=== PATIENT | male | born 1975 | race Caucasian/White ===

== ENCOUNTER 2017-12-13 19:55 | Emergency (ER) | payer BC ==
[2017-12-13 20:09] VITALS: BP 148/97; PULSE 63; RESP 16; TEMP 98.1; O2SAT 100
[2017-12-13] MEDS ORDERED: Sodium Chloride 0.9% 500 ML IV STA (20:19)
[2017-12-13 20:36] LABS: BASO # 0.1 K/uL (0.0-0.2); BASO % 0.9 % (0.0-2.0); EOS # 0.2 K/uL (0.0-0.7); EOS % 2.3 % (0.0-4.0); HEMOGLOBIN 16.4 g/dL (12.0-18.0); LYMPH # 2.3 K/uL (1.0-4.3); LYMPH % 30.5 % (20.0-40.0); MEAN CELL VOLUME 84.7 fl (80.0-94.0); MEAN CORPUSCULAR HEMOGLOBIN 28.6 pg (27.0-31.0); MEAN CORPUSCULAR HGB CONC 33.7 g/dL (33.0-37.0); MONO # 0.7 K/uL (0.0-0.8); MONO % 9.7 % (0.0-10.0); NEUT # 4.2 K/uL (1.8-7.0); NEUT % 56.6 % (50.0-75.0); NRBC % 0.1 % (0.0-0.0); RBC 5.72 Mil/uL (4.40-5.90); RED CELL DISTRIBUTION WIDTH 13.3 % (11.5-14.5); WHITE BLOOD COUNT 7.4 K/uL (4.8-10.8)
[2017-12-13 20:49] LABS: ALB/GLOB RATIO 1.2 (1.0-2.1); ALBUMIN 4.7 g/dL (3.5-5.0); ALT/SGPT 75 U/L (21-72); AST/SGOT 35 U/L (17-59); BLOOD UREA NITROGEN 14 mg/dl (9-20); CALCIUM 9.9 mg/dL (8.4-10.2); GFR AFRICAN-AMERICAN > 60; GFR NON-AFRICAN AMERICAN > 60
--- NOTE | 2017-12-13 21:06 | ED PDOC ---
HPI: Abdomen Time Seen by Provider: 12/13/17 20:13 Chief Complaint (Nursing): Abdominal Pain Chief Complaint (Provider): Right flank pain History Per: Patient History/Exam Limitations: no limitations Onset/Duration Of Symptoms: Hrs (2), Sudden Onset Outside of [place] travel?: No Current Symptoms Are (Timing): Still Present Associated Symptoms: Nausea. denies: Fever, Chills, Vomiting, Diarrhea, Constipation, Urinary Symptoms Additional History Per: Patient Additional Complaint(s): 42yo male, presents to ED for evaluation of right flank pain, sudden onset 2 hours prior to arrival. Patient states the pain has radiated to his right lower quadrant, is sharp in nature, constant and severe. Patient does state approximately 2-3 weeks ago, he was evaluated for dark urine by his PCP and had an XR after which he was informed he might have a kidney stones. Patient currently reports some nausea but denies any vomiting, hematuria, dysuria, frequency, fever or chills. He states he was in his normal state of health prior to onset of the pain. He has no other medical complaints. PMD: Dr. Myles Past Medical History Reviewed: Historical Data, Nursing Documentation, Vital Signs Vital Signs: Last Vital Signs Temp 98.1 F 12/13/17 20:07 Pulse 63 12/13/17 20:07 Resp 16 12/13/17 20:07 BP 148/97 H 12/13/17 20:07 Pulse Ox 100 12/13/17 22:31 - Medical History PMH: No Chronic Diseases - Surgical History Surgical History: No Surg Hx - Family History Family History: States: Diabetes, Hypertension - Social History Current smoker - smoking cessation education provided: No - Home Medications Home Medications: Ambulatory Orders Medication Instructions Recorded Ciprofloxacin HCl [Cipro] 250 mg PO BID #14 tab 12/13/17 Ketorolac Tromethamine [Toradol] 10 mg PO Q8 PRN #30 tab 12/13/17 Ondansetron ODT [Zofran ODT] 1 odt PO Q6 PRN #20 odt 12/13/17 Tamsulosin [Flomax] 0.4 mg PO DAILY #14 cap 12/13/17 traMADol [Ultram] 50 mg PO TID PRN #15 tab 12/13/17 - Allergies Allergies/Adverse Reactions: Allergies Allergy/AdvReac Type Severity Reaction Status Date / Time No Known Allergies Allergy Verified 12/13/17 20:09 Review of Systems ROS Statement: Except As Marked, All Systems Reviewed And Found Negative (as per HPI) Constitutional: Negative for: Fever, Chills Gastrointestinal: Positive for: Nausea, Other (right flank pain radiating right lower quadrant). Negative for: Vomiting Genitourinary Male: Negative for: Dysuria, Frequency, Hematuria Physical Exam - Reviewed Nursing Documentation Reviewed: Yes Vital Signs Reviewed: Yes - Physical Exam Appears: Positive for: Uncomfortable (painful distress) Head Exam: Positive for: ATRAUMATIC, NORMOCEPHALIC Skin: Positive for: Warm, Dry Respiratory: Positive for: Normal Breath Sounds. Negative for: Respiratory Distress Gastrointestinal/Abdominal: Positive for: Soft, Guarding (diffuse voluntary guarding). Negative for: Tenderness, Mass, Rebound Back: Positive for: R CVA Tenderness (mild ). Negative for: Vertebral Tenderness Extremity: Positive for: Normal ROM. Negative for: Deformity Lymphatic: Negative for: Adenopathy Neurologic/Psych: Positive for: Alert. Negative for: Motor/Sensory Deficits - Laboratory Results Result Diagrams: 12/13/17 20:22 12/13/17 20:22 - ECG O2 Sat by Pulse Oximetry: 100 (RA) Pulse Ox Interpretation: Normal Medical Decision Making Medical Decision Making: Impression: Flank pain Differential (including but not limited to): Renal colic, pyelonephritis, muscle strain Plan: -- CT Abdomen and Pelvis w/o contrast -- Labs -- IV Fluids -- Tylenol 975 mg PO -- Zofran 8mg IV -- Toradol 15mg IVP -- Flomax 0.4mg PO Time: 2227 CT Abdomen and Pelvis FINDINGS: Limitations: Lack of intravenous contrast. Lung bases: Minimal atelectasis. ABDOMEN: Liver: Fatty infiltration. Gallbladder and bile ducts: No calcified stones. No ductal dilation. Pancreas: Unremarkable. No ductal dilation. Spleen: No splenomegaly. Adrenals: No mass. Kidneys and ureters: No renal calculi. Probable 1.5 cm right renal cyst. Mild-to -moderate pelvocaliectasis of RIGHT kidney. Mild to moderately dilated RIGHT proximal ureter. 0.4 x 0.4 x 0.3 cm calculus within RIGHT mid ureter. Stomach and bowel: Segmental areas of probable underdistention of colon. No definite mural thickening. No obstruction. Appendix: Normal caliber. No inflammation. PELVIS: Bladder: Unremarkable. No stones. Reproductive: Unremarkable as visualized. ABDOMEN and PELVIS: Intraperitoneal space: No significant fluid collection. No free air. Bones/joints: No acute fracture. Soft tissues: Minimal right gynecomastia. Vasculature: Unremarkable. No aneurysm. Lymph nodes: No pathologically enlarged lymph nodes. IMPRESSION: 1. RIGHT mid ureteral calculus with [id number] hydroureteronephrosis. 2. Incidental/non-acute findings are described above. 1030p Pt feels better, more comfortable on reevaluation. DW pt and family findings and plan of care. Expectant management of renal colic given size of stone. Urology follow up. Questions/comments addressed and answered. Stable for dc. Scribe Attestation: Documented by Jeanie Garcia acting as a scribe for Sharon Gardner MD. Provider Attestation: All medical record entries made by the Scribe were at my direction and personally dictated by me. I have reviewed the chart and agree that the record accurately reflects my personal performance of the history, physical exam, medical decision making, and the department course for this patient. I have also personally directed, reviewed, and agree with the discharge instructions and disposition. Disposition - Clinical Impression Clinical Impression: Renal calculus Counseled Patient/Family Regarding: Studies Performed, Diagnosis, Need For Followup, Rx Given - Disposition Referrals: Daren Medeiros MD [Staff Provider] - (FOLLOW UP WITH A UROLOGIST WITHIN A WEEK) Luis Myles MD [Medical Doctor] - Disposition: Routine/Home Disposition Time: 22:54 Condition: IMPROVED Prescriptions: Ciprofloxacin HCl [Cipro] 250 mg PO BID #14 tab Ketorolac Tromethamine [Toradol] 10 mg PO Q8 PRN #30 tab PRN Reason: PAIN Ondansetron ODT [Zofran ODT] 1 odt PO Q6 PRN #20 odt PRN Reason: Nausea/Vomiting Tamsulosin [Flomax] 0.4 mg PO DAILY #14 cap traMADol [Ultram] 50 mg PO TID PRN #15 tab PRN Reason: SEVERE PAIN ONLY Instructions: Kidney Stones in Adults Forms: [facility] ED School/Work Excuse
--- NOTE | 2017-12-13 22:29 | CT ---
EXAM: CT Abdomen and Pelvis Without Intravenous Contrast CLINICAL HISTORY: 42 years old, male; Pain; Abdominal pain; Flank; Right; Additional info: Right flank pain TECHNIQUE: Axial computed tomography images of the abdomen and pelvis without intravenous contrast. All CT scans at this facility use one or more dose reduction techniques, viz.: automated exposure control; ma/kV adjustment per patient size (including targeted exams where dose is matched to indication; i.e. head); or iterative reconstruction technique. Coronal and sagittal reformatted images were created and reviewed. COMPARISON: No relevant prior studies available. FINDINGS: Limitations: Lack of intravenous contrast. Lung bases: Minimal atelectasis. ABDOMEN: Liver: Fatty infiltration. Gallbladder and bile ducts: No calcified stones. No ductal dilation. Pancreas: Unremarkable. No ductal dilation. Spleen: No splenomegaly. Adrenals: No mass. Kidneys and ureters: No renal calculi. Probable 1.5 cm right renal cyst. [id number] pelvocaliectasis of RIGHT kidney. Mild to moderately dilated RIGHT proximal ureter. 0.4 x 0.4 x 0.3 cm calculus within RIGHT mid ureter. Stomach and bowel: Segmental areas of probable underdistention of colon. No definite mural thickening. No obstruction. Appendix: Normal caliber. No inflammation. PELVIS: Bladder: Unremarkable. No stones. Reproductive: Unremarkable as visualized. ABDOMEN and PELVIS: Intraperitoneal space: No significant fluid collection. No free air. Bones/joints: No acute fracture. Soft tissues: Minimal right gynecomastia. Vasculature: Unremarkable. No aneurysm. Lymph nodes: No pathologically enlarged lymph nodes. IMPRESSION: 1. RIGHT mid ureteral calculus with [id number] hydroureteronephrosis. 2. Incidental/non-acute findings are described above.
== END 2017-12-13 23:10 | disposition home or self-care (01) ==
LOC: H.ER 19:55
DX: N13.2 Hydronephrosis with renal and ureteral calculous obstruction (principal)
CPT/HCPCS: 74176; 80053; 85025; 96374; 99283; J1885; J2405; J7040